=== PATIENT | female | born 1970 | race Two or more races ===

== ENCOUNTER → 2020-05-20 | Emergency (ER) | payer OTHER ==
[~2020-05-20] VITALS: Ht 180.3 cm; Wt 72.6 kg
== END | disposition left against medical advice (07) ==
LOC: ER 07:35
DX: Z53.20 Procedure and treatment not carried out because of patient's decision for unspecified reasons (principal)

== ENCOUNTER 2024-11-30 05:22 | Day surgery (SDC) | payer OTHER ==
[2024-11-24 13:18] VITALS: BP 105/69
[~2024-11-30] VITALS: Ht 180.3 cm; Wt 70.3 kg
[2024-11-30] MEDS ORDERED: KETOROLAC TROMETHAMINE 30 MG VIAL ONE (07:09)
[2024-11-30] MEDS ORDERED: CEFAZOLIN SODIUM 1,000 MG VIAL ONE (07:09)
[2024-11-30] MEDS ORDERED: METHYLPREDNISOLONE ACETATE 80 MG/ML VIAL ONE (07:32)
== END 2024-11-30 10:40 | disposition home or self-care (01) ==
LOC: CIR.AMB 05:22
PROVIDERS: ATTEND Orthopaedic Surgery
DX: M75.02 Adhesive capsulitis of left shoulder (principal); M75.42 Impingement syndrome of left shoulder; M75.32 Calcific tendinitis of left shoulder

== ENCOUNTER 2025-05-17 07:00 | Day surgery (SDC) | payer OTHER ==
[2025-05-10 09:28] VITALS: BP 116/72
[~2025-05-17] VITALS: Ht 182.9 cm; Wt 72.6 kg
[2025-05-17] MEDS ORDERED: CEFOXITIN SODIUM 2,000 MG VIAL IV ONE (08:20)
[2025-05-17] MEDS ORDERED: POVIDONE-IODINE 118 ML BOTT TOP ONE (09:06)
[2025-05-17] MEDS ORDERED: NAPR500T14 PO (10:44)
[2025-05-17] MEDS ORDERED: DOXYCYCLINE HY100 M2 PO (10:44)
[2025-05-17] MEDS ORDERED: PROMETHAZINE HCL 50 MG/ML AMPUL IM ONE (10:45)
== END 2025-05-17 16:05 | disposition home or self-care (01) ==
LOC: CIR.AMB 07:00
PROVIDERS: ATTEND Obstetrics & Gynecology
DX: D06.1 Carcinoma in situ of exocervix (principal); N95.0 Postmenopausal bleeding